=== PATIENT | female | born 1975 | race Caucasian/White ===

== ENCOUNTER 2018-11-05 03:09 | Emergency (ER) | payer BC ==
[2018-11-05 03:27] VITALS: TEMP 98.8
[2018-11-05] MEDS ORDERED: ACETAMINOPHEN 325 MG TAB PO ONE (04:09)
[2018-11-05] MEDS ORDERED: ONDANSETRON ODT 8 MG TAB ONE (04:09)
[2018-11-05] MEDS ORDERED: ACETAMINOPHEN 325 MG TAB ONE (04:09)
[2018-11-05] MEDS ORDERED: ONDANSETRON ODT 8 MG TAB SL ONE (04:09)
--- NOTE | 2018-11-05 04:37 | CT ---
CLINICAL HISTORY: HEADACHE COMPARISON: None. TECHNIQUE: CT HEAD WITHOUT IV CONTRAST on 11/05/2018 3:27 AM GROUNDS PERSON This exam was performed according to our departmental dose-optimization program, which includes automated exposure control, adjustment of the mA and/or kV according to patient size and/or use of iterative reconstruction technique. FINDINGS: There is no acute hemorrhage, mass effect or midline shift. Weir-white differentiation is preserved. There is no hydrocephalus. There is no significant volume loss for age. The calvarium is intact. Orbits and globes are unremarkable. The paranasal sinuses are clear. Mastoid air cells are clear. IMPRESSION: No acute intracranial findings. Electronically signed by: Varun Dalton MD 11/05/2018 4:34 AM GROUNDS PERSON
[2018-11-05] MEDS ORDERED: ONDANSETRON INJ 4 MG/2 ML VIAL ONE (04:43)
[2018-11-05] MEDS ORDERED: ONDANSETRON INJ 4 MG/2 ML VIAL IV ONE (04:45)
[2018-11-05] MEDS ORDERED: PROMETHAZINE HCL INJ 25 MG in SODIUM CHLORIDE 0.9% 50ML 50 ML IVPB ONE (05:00)
[2018-11-05] MEDS ORDERED: PROMETHAZINE HCL INJ 25 MG/ML VIAL ONE (05:01)
[2018-11-05] MEDS ORDERED: SODIUM CHLORIDE 0.9% 50ML 50 ML ONE (05:01)
[2018-11-05] MEDS ORDERED: KETOROLAC TROMETHAMINE INJ 30 MG/ML VIAL IV ONE (05:01)
--- NOTE | 2018-11-05 05:04 | ED.PDOC ---
History of Present Illness - General Chief Complaint: Neuro Symptoms/Deficits Stated Complaint: headache Time Seen by Provider: 11/05/18 04:44 Source: patient Exam Limitations: no limitations - History of Present Illness Initial Comments: Patient presents with a headache for about 3 hours. She was reading a book in bed and the headache started on her left occipital area. It later started radiating to the frontal area. It is sharp and "pounding" in nature. Worse with movement, better with rest. She has vomited three times since getting the headache. She recently had a URI. She says that her father had an aneurysm and the symptoms were exactly the same. No other complaints. Timing/Duration: other - 3 hours Severity: severe Improving Factors: rest Worsening Factors: movement Associated Symptoms: other - as in HPI Allergies/Adverse Reactions: Allergies Codeine Allergy (Verified 11/05/18 03:26) Penicillins Allergy (Verified 11/05/18 03:26) Home Medications: Ambulatory Orders Ondansetron [Zofran Odt] 4 mg PO Q6HRS PRN #10 tab 11/05/18 Review of Systems - Review of Systems Constitutional: States: no symptoms reported EENTM: States: no symptoms reported Respiratory: States: no symptoms reported Cardiology: States: no symptoms reported Gastrointestinal/Abdominal: States: see HPI Genitourinary: States: no symptoms reported Musculoskeletal: States: no symptoms reported Skin: States: no symptoms reported Neurological: States: see HPI Endocrine: States: no symptoms reported Hematologic/Lymphatic: States: no symptoms reported Past Medical History (General) - Patient Medical History Hx Congestive Heart Failure: No Hx Hypertension: No Hx Cancer: No Hx Hepatitis C: No - Vaccination History Hx Tetanus, Diphtheria Vaccination: No Hx Influenza Vaccination: Yes Hx Pneumococcal Vaccination: No Immunizations Up to Date: No - Social History Hx Tobacco Use: No Hx Alcohol Use: Yes - occ Hx Substance Use: No Hx Substance Use Treatment: No Hx Depression: No - Female History Patient is a Female of Child Bearing Age (10 -59 yrs old): Yes Family Medical History - Family History Mother Family History: Unknown Physical Exam - Physical Exam General Appearance: Alert Eye Exam: bilateral normal Ears, Nose, Throat: normal ENT inspection Neck: non-tender, full range of motion, supple Respiratory: lungs clear, normal breath sounds Cardiovascular/Chest: normal peripheral pulses, regular rate, rhythm Gastrointestinal/Abdominal: normal bowel sounds, non tender, soft Back Exam: normal inspection, no CVA tenderness Extremity: normal range of motion, non-tender, normal inspection 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, no motor/sensory deficits, alert, normal mood/affect, oriented x 3, other - Normal cerebellar tests Skin Exam: normal color Lymphatic: no adenopathy Progress - Progress Progress: 11/05/18 06:49 Laboratory Tests 11/05/18 11/05/18 11/05/18 03:27 03:27 03:27 WBC 12.7 H RBC 4.74 Hgb 14.3 Hct 42.3 MCV 89.3 MCH 30.1 MCHC 33.7 RDW 13.3 Plt Count 379 MPV 9.4 Absolute Neuts (auto) 8.70 H Absolute Lymphs (auto) 2.90 Absolute Monos (auto) 0.80 Absolute Eos (auto) 0.20 Absolute Basos (auto) 0.10 Neutrophils % 68.0 Lymphocytes % 23.0 Monocytes % 6.5 Eosinophils % 1.6 Basophils % 0.9 Sodium 136 Potassium 3.7 Chloride 105 Carbon Dioxide 20 L Anion Gap 14.7 BUN 16 Creatinine 0.76 BUN/Creatinine Ratio 21.1 H Random Glucose 103 Serum Osmolality 273.4 L Calcium 9.1 Total Bilirubin 0.2 AST 37 ALT 61 H Alkaline Phosphatase 56 Serum Total Protein 7.5 Albumin 4.1 Globulin 3.4 Albumin/Globulin Ratio 1.2 Urine Color Urine Appearance Urine pH Ur Specific [place] Urine Protein Urine Glucose (UA) Urine Ketones Urine Blood Urine Nitrite Urine Bilirubin Urine Urobilinogen Ur Leukocyte Esterase Urine RBC Urine WBC Ur Epithelial Cells Urine Bacteria Urine Mucus Urine HCG, Qual Urine Opiates Screen Negative Urine Barbiturates Negative Ur Phencyclidine Scrn Negative U Amphetamin/Meth Scrn Negative U Benzodiazepines Scrn Negative U Cocaine Metab Screen Negative U Cannabinoids Screen Negative 11/05/18 11/05/18 03:27 03:29 WBC RBC Hgb Hct MCV MCH MCHC RDW Plt Count MPV Absolute Neuts (auto) Absolute Lymphs (auto) Absolute Monos (auto) Absolute Eos (auto) Absolute Basos (auto) Neutrophils % Lymphocytes % Monocytes % Eosinophils % Basophils % Sodium Potassium Chloride Carbon Dioxide Anion Gap BUN Creatinine BUN/Creatinine Ratio Random Glucose Serum Osmolality Calcium Total Bilirubin AST ALT Alkaline Phosphatase Serum Total Protein Albumin Globulin Albumin/Globulin Ratio Urine Color Yellow Urine Appearance Clear Urine pH 7.0 Ur Specific [place] 1.025 Urine Protein Negative Urine Glucose (UA) Negative Urine Ketones Negative Urine Blood Negative Urine Nitrite Negative Urine Bilirubin Negative Urine Urobilinogen 0.2 Ur Leukocyte Esterase Negative Urine RBC 0 Urine WBC 0-1 Ur Epithelial Cells 5-10 Urine Bacteria 3+ H Urine Mucus Small Urine HCG, Qual Negative Urine Opiates Screen Urine Barbiturates Ur Phencyclidine Scrn U Amphetamin/Meth Scrn U Benzodiazepines Scrn U Cocaine Metab Screen U Cannabinoids Screen CT head and CTA head negative. Patient's headache improved significantly with phenergan 25 mg IV and toradol 30 mg IV. E.R. warnings given. Follow up instructions given. Questions were elicited and answered. The patient voiced understanding and agreement with the plan. - EKG/XRAY/CT CT Ordered: Yes Departure - Departure Clinical Impression: Headache Disposition: Discharge to Home or Self Care Condition: Good Departure Forms: ED Discharge - Pt. Copy, Patient Portal Self Enrollment Instructions: Headache, Adult (DC) Diet: resume usual diet Activity: increase activity as tolerated Referrals: Cole Sheldon MD [Primary Care Provider] - 1-2 Weeks Prescriptions: Ondansetron [Zofran Odt] 4 mg PO Q6HRS PRN #10 tab PRN Reason: Nausea Home Medications: Ambulatory Orders Ondansetron [Zofran Odt] 4 mg PO Q6HRS PRN #10 tab 11/05/18 Additional Instructions: Follow up with your primary care doctor for MRI if headache continues or you are concerned about aneurysm. Return to the E.R. if symptoms return.
--- NOTE | 2018-11-05 05:59 | CT ---
CLINICAL HISTORY: headache, familial history of aneurysm COMPARISON: None. TECHNIQUE: CT HEAD ANGIOGRAPHY WITH IV CONTRAST on 11/05/2018 5:01 AM COMMUNICATION ELECTRONIC TECHNICIAN This exam was performed according to our departmental dose-optimization program, which includes automated exposure control, adjustment of the mA and/or kV according to patient size and/or use of iterative reconstruction technique. MIP reconstructions were generated. Stenoses are calculated by NASCET criteria. FINDINGS: Distal internal carotid arteries are patent. The anterior, middle and posterior cerebral arteries are normal. The vertebral basilar system is intact. IMPRESSION: No evidence of vessel is, stenosis or Electronically signed by: Varun Dalton MD 11/05/2018 5:56 AM COMMUNICATION ELECTRONIC TECHNICIAN
[2018-11-05 07:05] VITALS: BP 102/51; O2SAT 97
== END 2018-11-05 07:05 | disposition home or self-care (01) ==
LOC: ER 03:09
DX: R51 Headache (principal); R11.10 Vomiting, unspecified; Z88.5 Allergy status to narcotic agent; Z88.0 Allergy status to penicillin
CPT/HCPCS: 36415; 70450; 70496; 80053; 80307; 81001; 81025; 85025; A4216; J1885; J2405; J2550